=== PATIENT | male | born 1975 | race Caucasian/White ===

== ENCOUNTER 2021-09-07 23:47 | Emergency (ER) | payer OTHER ==
[~2021-09-07] VITALS: Ht 182.9 cm; Wt 97.5 kg
[~2021-09-07 23:47] MED LIST: ASPIRIN325; CARISOPRODOL 3350 MG PO; IBUPROFEN 800800 M1 PO; MENS VITAMIN; ULTRAM 50MG TAB50 MG PO; ZOCOR
[2021-09-08] MEDS ORDERED: MEDROLDOSEPACK PO ×2 (00:58→00:59)
[2021-09-08 01:06] VITALS: BP 132/79
== END 2021-09-08 01:06 | disposition home or self-care (01) ==
LOC: M.ERS 23:47
DX: L50.9 Urticaria, unspecified (principal); E78.00 Pure hypercholesterolemia, unspecified; Z88.8 Allergy status to other drugs, medicaments and biological substances